=== PATIENT | male | born 1970 | race Caucasian/White ===

== ENCOUNTER 2024-04-06 21:22 | Emergency (ER) | payer OTHER, SELFPAY ==
--- NOTE | ~2024-04-06 | CT_ITS ---
CLINICAL HISTORY: Right flank pain ?stone CT Abdomen and Pelvis WO Contrast COMPARISON: None FINDINGS: Diffusely hypodense liver consistent with hepatic steatosis. Hepatomegaly. Splenomegaly. Distal right ureteral 3 mm calculus near the right ureterovesicular junction. No hydronephrosis at the time of the study. Unremarkable left kidney. Normal adrenal glands. Normal pancreas. No visible cholelithiasis. No biliary dilation. No evidence of bowel obstruction or colitis. Normal appendix. Mild diffuse bladder wall thickening. No ascites. No pneumoperitoneum. No lymphadenopathy. No acute fracture. Degenerative changes in the spine. No abdominal aortic aneurysm. IMPRESSION: Distal right ureteral calculus. No hydronephrosis at the time of the study. Possible cystitis. Nonemergent/incidental findings above. This document has been electronically signed by: Dakota Long MD on 04/07/2024 00:00:13
[2024-04-06 21:24] VITALS: BP 176/63; PULSE 55; RESP 17; TEMP 36.4; O2SAT 98; BMI 33.4
[2024-04-06 21:39] LABS: MANUAL DIFF FLAG NO
[2024-04-06 21:40] LABS: Basophils Absolute Auto 0.1 X10*3/uL (0.0-0.2); Basophils Percent Auto 0.8 % (0-2); Eosinophils Absolute Auto 0.2 X10*3/uL (0.0-0.4); Hematocrit 42.4 % (42.0-52.0); Hemoglobin 15.1 g/dl (14.0-18.0); Imm Gran Abs Auto 0.03 X10*3/uL (0.00-0.03); Imm Gran Pct Auto 0.3 % (0.0-0.4); Lymphocytes Absolute Auto 2.9 X10*3/uL (1.2-4.9); Lymphocytes Percent Auto 32.1 % (20-40); Mean Corpuscular HGB Conc 35.6 g/dl (31.0-36.0); Mean Corpuscular Hemoglobin 30.2 pg (27.0-33.0); Mean Corpuscular Volume 84.8 fL (80.0-98.0); Mean Platelet Volume 10.8 fL (9.4-12.4); Monocytes Absolute Auto 0.6 X10*3/uL (0.1-1.2); Monocytes Percent Auto 6.6 % (2-11); Neutrophils Absolute Auto 5.2 x10*3/uL (2.0-8.3); Neutrophils Percent Auto 58.2 % (45-73); Platelet Count 182 X10*3/uL (160-400); Red Cell Distribution Width 13.1 % (11.0-16.0); White Blood Count 8.9 X10*3/uL (4.8-10.8)
--- OUTSIDE RECORDS SUMMARY | 2024-04-06 21:45 | XMS_ITS | Clinical Summary ---
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 Name Role Phone Unavailable Primary Care Provider Unavailabl e Immunizations Name Administration Dates Next Due PPD/TST (Tuberculin Skin Test) 10/22/2011 Social History Tobacco Use Types Packs/Day Years Used Date Smoking Tobacco: Never Assessed Sex and Gender Information Value Date Recorded Sex Assigned at Not on file Legal Sex Male 1:57 AM EDT Gender Identity Not on file Sexual Orientation Not on file Plan of Treatment Health Maintenance Due Date Last Done Comments Hepatitis C Screening 1970 DTaP/Tdap/Td (1 - Tdap) 1986 Hep B (1 of 3 - 19+ 3-dose series) 09/10/1987 Pneumococcal 50+ years (1 of 1 - PCV) 2018 Zoster (Shingrix) (1 of 2) 2018 COVID-19 Vaccine (2023-2 5 season) 2023 Influenza (#1) 2023 HPV Vaccine Aged Out No longer eligi ble based on patient's age to complete this topic Hep A Aged Out No longer eligi ble based on patient's age to complete this topic Hib Aged Out No longer eligi ble based on patient's age to complete this topic Meningococcal ACWY Aged Out No longer eligible based on patient's age to complete this topic
[2024-04-06 22:03] LABS: Alanine Aminotransferase 206 U/L (0-40); Alkaline Phosphatase 131 U/L (39-117); Anion Gap 13 (12-20); Aspartate Amino Transferase 146 U/L (5-37); Bilirubin Total 0.3 mg/dL (0.0-1.0); Blood Urea Nitrogen 13 mg/dL (9-16); Calcium 9.4 mg/dL (8.4-10.2); Carbon Dioxide 25 mmol/L (22-29); Chloride 104 mmol/L (96-108); Creatinine Clr Calc Pharmacy 122.3; Estimated Glomerular Filt Rate > 60; Glucose Random 276 mg/dL (60-115); Lipase 37 U/L (8-78); Potassium 4.3 mmol/L (3.3-5.1); Sodium 138 mmol/L (135-145); Total Protein 7.4 g/dL (6.5-8.0)
--- NOTE | 2024-04-06 22:21 | PC.NURSE ---
Pt is an a&ox4, 53 yo male presenting to the ED with c/o right sided intermittent 3/10 abd/flank pain, with onset x1 day. Pt reports he went to [employer] yesterday when pain began but, only gave blood and then left d/t wait. Pt denies all other sxs, trauma/injury states he was sitting when the pain began. Pt ambulates with a steady gait to restroom. Plan of care ongoing.
[2024-04-06 23:14] LABS: Appearance Urine Clear; Color Urine Yellow; Glucose Urine UA >=1000 mg/dL (Negative); Leukocyte Esterase Urine Negative (Negative); Nitrite Urine Negative (Negative); PH 5.5 (5.0-9.0); Specific Gravity - Urine 1.025 (1.005-1.025); UMIC TRIGGER UACC YES; Urine Blood Negative (Negative); Urine Ketones Negative (Negative); Urine Protein Negative (Neg-Trace)
[2024-04-06 23:19] LABS: Bacteria Urine None Seen (None Seen); Hyaline Casts Urine 0-2 /LPF (0-2); RBC Urine 0-2 /HPF (0-2); Squamous Epithelial Cell Urine 0-2 /HPF (0-2); WBC Urine 0-5 /HPF (0-5)
--- NOTE | 2024-04-06 23:24 | ED.ABDPAIN ---
HPI - Abdominal Pain General Chief Complaint: Abdominal Pain Stated Complaint: rt side pain last couple days Time Seen by Provider: 04/06/24 22:37 Source: patient Mode of arrival: ambulatory Limitations: no limitations History of Present Illness ED Provider: HPI narrative: Patient with no significant past medical history complaining of pain in the right mid abdomen since yesterday started all of a sudden had slight nausea no vomiting no diarrhea pain is intermittent got better yesterday came back again today no hematuria no history of kidney stone no history of gallstones no fever chills no urinary complaints Related Data Allergies Allergy/AdvReac Type Severity Reaction Status Date / Time No Known Allergies Allergy Verified 04/06/24 21:27 Review of Systems Review of Systems Yes all other systems are reviewed and are negative [facility] Social History Social History Smoked in Last 30 Days: Yes Use of substances other than those prescribed or required for medical reasons: Yes Substance Use Type: Marijuana Advance Directives: No Advance Directives Information Provided: No Do you have a plan to hurt others: No Plan Physical Exam ED Vital Signs: Vital Signs - 24 hr 04/06/24 21:24 04/06/24 23:57 Temperature 97.5 F 98.2 F Pulse Rate 55 52 Respiratory Rate 17 16 Blood Pressure 176/63 H 137/83 Pulse Oximetry 98 98 Oxygen Delivery Method Room Air Room Air BMI result Body Mass Index 33.4 Appearance: Alert. Oriented X3. No acute distress. Eyes: PERRLA, No Nystagmus ENT: Pharynx normal. Oral Mucosa moist Neck: Normal inspection. Neck supple. CVS: Normal heart rate and rhythm. Pulses normal. Respiratory: No respiratory distress. Equal air entry bilateral, no wheezing/rales/rhonchi Abdomen: Soft and mild deep tenderness right mid abdomen Bowel sounds are present, no mass palpable, no CVA tenderness Skin: Skin warm and dry. Normal skin color. Normal skin turgor. Extremities: No lower extremity edema. No calf tenderness Neuro: Oriented X 3. No motor deficit. No sensory deficit.No cerebellar signs , cranial nerves II-XII intact Medical Decision Making Medical Decision Making MDM Narrative: Patient with right-sided abdominal pain workup showed 3 mm nonobstructive right UVJ stone no hydronephrosis patient is feeling much better during stay in the ER urine is negative for hematuria or UTI will discharge patient home advised to drink plenty of fluids likely stone already passed Differential Diagnosis Differential Diagnoses: The differential diagnosis associated with the presentation includes Kidney stone/UTI/appendicitis/gallstones Lab Data MDM Lab Attestation statement: I reviewed the patient's lab results. 04/06/24 21:34 04/06/24 21:34 Labs: Lab Results 04/06/24 04/06/24 Range/Units 21:34 23:05 WBC 8.9 (4.8-10.8) X10*3/uL RBC 5.00 (4.60-5.80) X10*6/uL Hgb 15.1 (14.0-18.0) g/dl Hct 42.4 (42.0-52.0) % MCV 84.8 (80.0-98.0) fL MCH 30.2 (27.0-33.0) pg MCHC 35.6 (31.0-36.0) g/dl RDW 13.1 (11.0-16.0) % Plt Count 182 (160-400) X10*3/uL MPV 10.8 (9.4-12.4) fL Immature Gran % (Auto) 0.3 (0.0-0.4) % Neut % (Auto) 58.2 (45-73) % Lymph % (Auto) 32.1 (20-40) % Hitchcock % (Auto) 6.6 (2-11) % Eos % (Auto) 2.0 (0-4) % Baso % (Auto) 0.8 (0-2) % Lymph # (Auto) 2.9 (1.2-4.9) X10*3/uL Hitchcock # (Auto) 0.6 (0.1-1.2) X10*3/uL Eos # (Auto) 0.2 (0.0-0.4) X10*3/uL Baso # (Auto) 0.1 (0.0-0.2) X10*3/uL Abs Immat Gran (auto) 0.03 (0.00-0.03) X10*3/uL Absolute Neuts (auto) 5.2 (2.0-8.3) x10*3/uL Absolute Nucleated RBC 0.000 (0.0-0.012) X10*3/uL Nucleated RBC % (auto) 0.0 (0.0-0.2) /100WBC Sodium 138 (135-145) mmol/L Potassium 4.3 (3.3-5.1) mmol/L Chloride 104 (96-108) mmol/L Carbon Dioxide 25 (22-29) mmol/L Anion Gap 13 (12-20) BUN 13 (9-16) mg/dL Creatinine 0.83 (0.5-1.4) mg/dL Estim Creat Clear Calc 122.3 Estimated GFR > 60 Random Glucose 276 H (60-115) mg/dL Calcium 9.4 (8.4-10.2) mg/dL Total Bilirubin 0.3 (0.0-1.0) mg/dL AST 146 H (5-37) U/L ALT 206 H (0-40) U/L Alkaline Phosphatase 131 H (39-117) U/L Total Protein 7.4 (6.5-8.0) g/dL Albumin 4.0 (3.5-5.0) g/dL Lipase 37 (8-78) U/L Urine Color Yellow Urine Appearance Clear Urine pH 5.5 (5.0-9.0) Ur Specific [place] 1.025 (1.005-1.025) Urine Protein Negative (Neg-Trace) mg/dL Urine Glucose (UA) >=1000 H (Negative) mg/dL Urine Ketones Negative (Negative) mg/dL Urine Blood Negative (Negative) Urine Nitrite Negative (Negative) Ur Leukocyte Esterase Negative (Negative) Urine RBC 0-2 (0-2) /HPF Urine WBC 0-5 (0-5) /HPF Ur Squamous Epith Cells 0-2 (0-2) /HPF Urine Bacteria None Seen (None Seen) Hyaline Casts 0-2 (0-2) /LPF Independent Interpretation I performed an independent interpretation of an: CT Scan Radiology Impression Discussion of test interpretation with radiology: I have reviewed the radiologist's reading. Radiologist Impression: [address] [id number] [address] Scan Report Signed Patient: Chay Boyce MR#: [id number] : 1970 Acct:[id number] Age/Sex: 53 / M ADM Date: 04/06/24 Loc: HO.ED Attending Dr: Ordering Physician: Alexandr Moe MD Date of Service: 04/06/24 Procedure(s): CT abdomen pelvis wo IV con Accession Number(s): [id number] cc: Garrick Rodriguez DPM; Alexandr Moe MD~ Report Number: [id number]: Total DLP = 802.00 mGy-cm CLINICAL HISTORY: Right flank pain ?stone CT Abdomen and Pelvis WO Contrast COMPARISON: None FINDINGS: Diffusely hypodense liver consistent with hepatic steatosis. Hepatomegaly. Splenomegaly. Distal right ureteral 3 mm calculus near the right ureterovesicular junction. No hydronephrosis at the time of the study. Unremarkable left kidney. Normal adrenal glands. Normal pancreas. No visible cholelithiasis. No biliary dilation. No evidence of bowel obstruction or colitis. Normal appendix. Mild diffuse bladder wall thickening. No ascites. No pneumoperitoneum. No lymphadenopathy. No acute fracture. Degenerative changes in the spine. No abdominal aortic aneurysm. IMPRESSION: Distal right ureteral calculus. No hydronephrosis at the time of the study. Possible cystitis. Nonemergent/incidental findings above. This document has been electronically signed by: Dakota Long MD on 04/07/2024 00:00:13 Discharge Plan Discharge Clinical Impression: Calculus of distal right ureter Patient Disposition: Home, Self-Care Instructions: Low Oxalate Diet (ED), Ureteral Stones (ED) Additional Instructions: You have very small 3 mm stone in the right ureter which likely passed Decrease the food containing oxalate Drink plenty of fluid Ibuprofen for pain Report to the ED if pain gets worse Print Language: Vietnamese
[2024-04-06 23:57] VITALS: BP 137/83; PULSE 52; RESP 16; TEMP 36.8; O2SAT 98
[2024-04-07 00:15] VITALS: BP 137/83; PULSE 52; RESP 16; TEMP 36.8; O2SAT 98
== END 2024-04-07 00:18 | disposition home or self-care (01) ==
PROVIDERS: Emergency Provider Internal Medicine; PCP Podiatrist
DX: N20.1 Calculus of ureter (principal); R10.2 Pelvic and perineal pain; Z79.899 Other long term (current) drug therapy
CPT/HCPCS: 36415; 74176; 80053; 81001; 83690; 85025; 99284

== ENCOUNTER → 2024-04-06 22:59 | Outpatient (BNV) | payer OTHER, SELFPAY | PROVIDERS: Emergency Provider Internal Medicine; PCP Podiatrist; Visit Provider Radiology Diagnostic Radiology | DX: N20.1 Calculus of ureter (principal) | CPT/HCPCS: 74176 ==